=== PATIENT | female | born 1990 ===

== ENCOUNTER 2023-02-12 20:00 | Outpatient (CLI) | payer MEDICAID, SELFPAY | END 2023-02-12 20:01 | disposition home or self-care (01) | LOC: SLEEP 22:29 | PROVIDERS: Family Provider Family Medicine; Visit Provider Family Medicine | DX: G47.10 Hypersomnia, unspecified (principal); R06.83 Snoring; G47.33 Obstructive sleep apnea (adult) (pediatric) | CPT/HCPCS: 95810 ==

== ENCOUNTER 2023-06-24 20:00 | Outpatient (CLI) | payer MEDICAID, SELFPAY | END 2023-06-24 20:01 | disposition home or self-care (01) | LOC: SLEEP 06-25 06:29 | PROVIDERS: Family Provider Family Medicine; Visit Provider Family Medicine | DX: G47.33 Obstructive sleep apnea (adult) (pediatric) (principal) | CPT/HCPCS: 95811 ==

== ENCOUNTER 2024-10-08 20:59 | Outpatient (CLI) | payer MEDICAID, SELFPAY ==
[2024-10-08] VITALS (20 sets, daily range): BP systolic 110–139; BP diastolic 67–90; PULSE 99–109; RESP 17; TEMP 36.7–37.3; O2SAT 97–100; BMI 42.0
[2024-10-08 21:51] LABS: Bilirubin Urine Negative (Negative); Blood Urine Negative (Negative); Glucose Urine UA Negative (Normal); Ketones Urine Trace (Negative); Leukocyte Esterase Urine Negative (Negative); Nitrate Urine Negative (Negative); Protein Urine 1+ (Negative); Specific Gravity, Urine 1.028 (1.005-1.030); Urine Appearance Clear (CLEAR); Urine Color Yellow (Yellow)
[2024-10-08 21:53] LABS: Bacteria Urine Trace /hpf; Hyaline Casts Urine 0.81 /lpf; RBC Urine 0-2 /hpf (0-2); WBC Urine 0-5 /hpf (0-5)
== END 2024-10-08 22:55 | disposition home or self-care (01) ==
LOC: OPOB 21:00 → OBGYN 21:01
PROVIDERS: Family Provider Family Medicine; Visit Provider Family Medicine
DX: O26.899 Other specified pregnancy related conditions, unspecified trimester (principal); Z3A.00 Weeks of gestation of pregnancy not specified; R10.9 Unspecified abdominal pain
CPT/HCPCS: 59025; 81001; 99211

== ENCOUNTER 2024-10-16 11:38 | Inpatient (IN) | payer MEDICAID, SELFPAY ==
[2024-10-16] VITALS (38 sets, daily range): BP systolic 120–167; BP diastolic 60–101; PULSE 39–86; RESP 16–17; TEMP 36.2–37.3; O2SAT 98; BMI 42.4
[2024-10-16 12:18] LABS: Amphetamines Screen Urine Negative (Negative); Barbiturates Screen Urine Negative (Negative); Benzodiazepines Screen Urine Negative (Negative); Cocaine Screen Urine Negative (Negative); Opiate Screen Urine Negative (Negative); PCP Screen Urine Negative (Negative); THC Screen Urine Negative (Negative)
[2024-10-16 12:22] LABS: Basophils % 0.2 %; Eosinophils # 0.1 10^3/uL (0.0-0.8); Eosinophils % 0.4 %; Hematocrit 34.5 % (36-47); Lymphocytes # 1.8 10^3/uL (0.8-4.8); Mean Corpuscular HGB Conc 33.9 g/dL (30-55); Mean Corpuscular Hemoglobin 29.3 pg (27-33); Mean Corpuscular Volume 86.3 fl (85-98); Mean Platelet Volume 11.3 fL (7.4-10.4); Monocytes # 0.8 10^3/uL (0.2-0.9); Monocytes % 6.1 %; Neutrophils # 9.92 10^3/uL (1.8-7.7); Nucleated Red Blood Cells % 0.2 %; Platelet Count 194 10^3/cmm (157-399); White Blood Count 12.86 10^3/uL (3.29-11.43)
[2024-10-16] MEDS: lactated ringers 1,000 ML 999 ML IV (12:30)
--- NOTE | 2024-10-16 13:00 | P.ANESASSM_ITS ---
Pre-Anesthetic Assessment Height/Weight: Height 1.57 m Weight 105.233 kg Temp Pulse Resp BP Pulse Ox O2 Del Method 98.3 F 71 16 153/87 97 Room Air 10/17/24 02:16 10/17/24 04:20 10/17/24 04:20 10/17/24 04:30 10/17/24 04:20 10/17/24 04:20 Preop Diagnosis: female desiring sterilization Operation Date: 10/17/24 08:10 Proposed Procedures p Post Bilateral Tubal Ligation(Bilateral) - Keenan Caputo MD Familial anesthetic complications: None Was Beta Trino taken within 24 hours: N/A Was Clonidine taken within 24 hours: N/A Social No alcohol and No tobacco Exam alert, oriented x 3, clear to auscultation bilaterally and regular rate & rhythm Airway Dentition: full Anesthetic Plan ASA status: 2 Anesthesia: Regional (specify below) Risk of > 500 ml blood loss (7ml/kg in children): Yes, adequate IV access and fluids planned Medications/Allergies Home Medications Medication Instructions Recorded Confirmed Last Taken Type escitalopram oxalate 10 mg tablet 10 mg PO DAILY #30 tabs 10/17/24 Unknown Rx hydrocodone 5 mg-acetaminophen 325 1 tab PO Q6H PRN Moderate To 10/17/24 Unknown Rx mg tablet Severe Pain #10 tabs ibuprofen 800 mg tablet 800 mg PO TID #45 tabs 10/17/24 Unknown Rx vits no.130-ferrous fum 1 tab PO DAILY #90 tabs 10/17/24 Unknown Rx 27 mg iron-folic acid 800 mcg tablet ( Vitamin) Allergies Allergy/AdvReac Type Severity Reaction Status Date / Time sulfamethoxazole Allergy ALGY-Rash Verified 10/08/24 22:45 [From Bactrim] trimethoprim [From Bactrim] Allergy ALGY-Rash Verified 10/08/24 22:45 Current Medications Generic Name Dose Route Start Last Admin Trade Name Freq PRN Reason Stop Dose Admin Benzocaine 1 spray 10/16/24 18:35 10/16/24 20:55 Benzocaine-Menthol 78 Gm Canister TOPICAL 1 spray PRN PRN Administration PAIN Ibuprofen 800 mg 10/16/24 21:00 10/16/24 20:55 Ibuprofen 800 Mg Tablet PO 800 mg TID CORY Administration Lanolin 1 applic 10/16/24 18:35 10/16/24 20:55 Lanolin Oint 7 Gm TOPICAL 1 applic PRN PRN Administration DRYNESS PFSH Anesthesia Social History (Updated 10/16/24 @ 18:22 by Keenan Caputo MD) Substance/Drug Use: former Former substance use details: Marijuana Female Reproductive History : 3 Data Anesthesia 10/17/24 06:30 Short CBC 10/16/24 10/17/24 Range/Units 12:04 06:30 WBC 12.86 H 16.14 H (3.29-11.43) 10^3/uL Hgb 11.70 10.20 L (11.27-16.99) g/dL Hct 34.5 L 30.2 L (36-47) % MCV 86.3 86.5 (85-98) fl Plt Count 194 149 L (157-399) 10^3/cmm Neut % (Auto) 77.0 78.5 % Neut # (Auto) 9.92 H 12.68 H (1.8-7.7) 10^3/uL Blood Bank 10/16/24 12:04 Blood Type A Positive Rho(D) Type Rh positive Antibody Screen Negative Cardiac Studies: 2 No Data to Display
[2024-10-16] MEDS: ROPivacaine syringe 100 MG/50 ML SYRINGE 10 MG EPIDURAL ×2 (13:15→17:18)
--- NOTE | 2024-10-16 13:30 | ANES.PROC ---
Anesthesia Procedures Procedure/Date: 10/17/24 Epidural: Time Out Performed: Yes Consents Signed: Procedure Consent Consent: requested by attending/covering physician, from patient, from other, risks and benefits reviewed and patient agrees to proceed Lumbar Level: L3-L4 Epidural position: sitting Epidural procedure: sterile prep of area, 1% lidocaine to numb the area, 18 g needle, negative for paresthesia passed, neg for paresthesia, test dose given, 1.5% xylocaine 1:200k epi (5 cc), 0.2% Ropivacaine bolus ml (5 ml), placed PCEA, no systemic response, sterile dressing applied, L.U.D. no apparent complications and 0.2% Ropiavacaine @ mls/hr (10)
[2024-10-16] MEDS: dextrose 5%-sod chloride 0.45% 1,000 ML 125 ML IV (13:32)
--- NOTE | 2024-10-16 17:46 | PM.OPHPUD ---
Labor & Delivery H&P Update Date of Procedure: October 16, 2024 Date H&P Performed: 10/15/24 Changes to previous documentation: The patient was dilated to 4 cm with contractions Admission Diagnosis: 33-year-old 3 para 2-0-0-2 at 40 weeks and 2 days presenting in active labor Planned procedure: Vaginal delivery Other information: The patient is an otherwise healthy 33-year-old female who presented to the hospital day in active labor. She began having contractions shortly before arrival to hospital. She had no rupture of membranes. She had no other concerns. Her had been relatively unremarkable. Her blood type is a positive. Her antibody screen is negative. She was rubella immune. She passed her 3-hour glucose screen. She was GBS negative. The remainder of her infectious disease profile was within normal limits. She was THC positive. Related Problem List Diagnoses (1) 40 weeks gestation of : A&P Assessment and plan (1) 40 weeks gestation of : I anticipate routine labor and delivery. Status: Acute
[2024-10-16] MEDS: oxytocin 30 UNIT/500 ML BAG 600 UNIT IV (18:00)
--- NOTE | 2024-10-16 18:19 | P.HP_ITS ---
Providers/Chief Complaint 2 Admitting Physician: Keenan Caputo Chief Complaint: ctx History of Present Illness Travon Hartmann is a 33 year old female who presented to the hospital in active labor. Her labor and vaginal delivery were relatively unremarkable. After her delivery she once again expressed her desire to have a bilateral tubal ligation. We once again discussed the risks including the risks of bleeding, infection, and damage to intra-abdominal organs. We also discussed the wanted to her chance of becoming again. She and her partner had no further questions and wished to proceed. Earlier in her she also expressed a desire to have her tubes tied. At that time we also discussed the risks and alternatives. She also signed the requisite form due to her insurance. Review of Systems 2 General: Reports: 10 or more systems reviewed and unremarkable except in HPI and below Const: Reports: fatigue; Denies: fever(s) Eyes: Denies: change in vision Card: Denies: chest pain Musc: Reports: back pain Frankie/Lymph: Denies: easy bruising Medications/Allergies Home Medications Medication Instructions Recorded Confirmed Last Taken Type citalopram 20 mg tablet 20 mg PO DAILY 10/08/24 10/16/24 10/08/24 History Allergies Allergy/AdvReac Type Severity Reaction Status Date / Time sulfamethoxazole Allergy ALGY-Rash Verified 10/08/24 22:45 [From Bactrim] trimethoprim [From Bactrim] Allergy ALGY-Rash Verified 10/08/24 22:45 PFSH 2 PFSH: Social History (Updated 10/16/24 @ 18:22 by Keenan Caputo MD) Substance/Drug Use: former Former substance use details: Marijuana Female Reproductive History: : 3 Vital Signs Vitals Signs: Last Vital Signs Temp 97.2 F L 10/16/24 13:37 Pulse 46 L 10/16/24 17:57 Resp 16 10/16/24 11:58 BP 148/76 10/16/24 17:57 O2 Del Method Room Air 10/16/24 12:01 Weight: Weight last 48 hrs Weight 232 lb Physical Exam 2 Narrative: EXAM NARRATIVE: Bleeding was within normal limits post delivery. No significant tears noted in her vagina and perineum Const: COMMON NORMALS: patient oriented x3 and alert HENMT: COMMON NORMALS: moist oral mucous membranes HEAD & SCALP: normal to inspection Chest: COMMONS NORMALS: normal inspection of the chest Resp: COMMON NORMALS: clear to auscultation bilaterally AUSCULTATION: clear to auscultation bilaterally Cardio: COMMON NORMALS: regular rate and regular rhythm RATE: regular rate RHYTHM: regular rhythm GI: INSPECTION: Yes normal to inspection Extremity: COMMON NORMALS: normal to inspection GENERAL: Yes edema (Trace) Neuro: COMMON NORMALS: patient oriented x3, moves all extremities and no sensory deficits noted SENSORIUM/ORIENTATION: Yes alert Psych: COMMON NORMALS: mental status grossly normal Skin: COMMON NORMALS: no rashes or lesions noted GENERAL SKIN EXAM: no rashes or lesions noted Data 10/16/24 12:04 A&P Assessment and plan (1) Sterilization consult: We will be contacting supervisor stripping and anesthesia to determine a time tomorrow morning when we can perform her tube ligation. She will be n.p.o. for 8 hours prior to the procedure. Coding Level of Care Code Acute Code for [facility] Fwd Diagnoses Sterilization consult Z30.09
--- NOTE | 2024-10-16 18:23 | P.PCNOB_ITS ---
Delivery Note: Date of delivery: October 16, 2024 Pre-delivery diagnoses: 1. 33-year-old 3 para 2-0-0-2 a t 40 weeks estimated gestational age presenting in active labor Post-delivery diagnoses: Status post spontaneous vaginal delivery Procedure: Spontaneous vaginal delivery Delivering Physician: Keenan Caputo Estimated blood loss (mL): 50 Pre-Delivery Course: The patient presented to the hospital in active labor. She was noted to be 4 cm dilated. An epidural was placed. Spontaneous rupture membranes occurred. Thick meconium was noted. She then gradually progressed to complete without dif ficulty. Delivery: DELIVERY: The patient progressed to complete without difficulty. She delivered a female with a weight of 9 pounds 14 ounces with Apgars of 7, 9. The baby was delivered from the ROP position. I was unable to deliver the anterior shoulder, so shifted to delivering the posterior shoulder. After several pushes, the posterior shoulder delivered without difficulty. The baby was then completely delivered and placed on the mother's abdomen. The cord was then clamped and cut. There was no nuchal cord. Thick meconium was noted. The placenta and 3 vessel cord were delivered intact shortly thereafter. The perineum and vaginal vault were carefully examined. No lacerations were noted. Both the mother and the baby were in stable condition. Post-Delivery Status: Good A&P Assessment and plan (1) Spontaneous vaginal delivery: I anticipate routine care. The patient also mentioned that she does still wish to have her tubes tied. We will try to get this scheduled tomorrow morning. Coding Level of Care Code Acute Code for [facility] Fwd Diagnoses Spontaneous vaginal delivery O80
[2024-10-16] MEDS: ibuprofen 800 mg tablet PO (20:55)
[2024-10-16] MEDS: benzocaine-menthol 78 gm Canister 1 SPRAY TOPICAL (20:55)
[2024-10-16] MEDS: lanolin oint 7 gm 1 APPLIC TOPICAL (20:55)
[2024-10-17] VITALS (19 sets, daily range): BP systolic 129–166; BP diastolic 72–99; PULSE 65–83; RESP 14–17; TEMP 36.6–36.9; O2SAT 97–100
[2024-10-17 06:47] LABS: Basophils % 0.2 %; Eosinophils # 0.1 10^3/uL (0.0-0.8); Eosinophils % 0.3 %; Hematocrit 30.2 % (36-47); Lymphocytes # 2.1 10^3/uL (0.8-4.8); Lymphocytes % 13.3 %; Mean Corpuscular HGB Conc 33.8 g/dL (30-55); Mean Corpuscular Hemoglobin 29.2 pg (27-33); Mean Corpuscular Volume 86.5 fl (85-98); Monocytes # 1.1 10^3/uL (0.2-0.9); Monocytes % 6.8 %; Neutrophils # 12.68 10^3/uL (1.8-7.7); Neutrophils % 78.5 %; Nucleated Red Blood Cells % 0 %; Platelet Count 149 10^3/cmm (157-399); Red Blood Count 3.49 10^6/uL (3.85-5.65); Red Cell Distribution Width 13.1 % (12.1-15.1); White Blood Count 16.14 10^3/uL (3.29-11.43)
--- NOTE | 2024-10-17 07:37 | P.ANESASSM_ITS ---
Pre-Anesthetic Assessment Height/Weight: Height 1.57 m Weight 105.233 kg Temp Pulse Resp BP Pulse Ox O2 Del Method 98.3 F 71 16 153/87 97 Room Air 10/17/24 02:16 10/17/24 04:20 10/17/24 04:20 10/17/24 04:30 10/17/24 04:20 10/17/24 04:20 Preop Diagnosis: female desiring sterilization Operation Date: 10/17/24 08:10 Proposed Procedures p Post Bilateral Tubal Ligation(Bilateral) - Keenan Caputo MD Familial anesthetic complications: none Was Beta Trino taken within 24 hours: N/A Was Clonidine taken within 24 hours: N/A Social No alcohol and No tobacco Exam alert and oriented x 3 Airway Submandibular: within normal limits Cervical ROM: within normal limits Mallampati: Class II Dentition: full History/ROS No significant history except as noted Neuropsych Anxiety Anesthetic Plan ASA status: 2 Anesthesia: Anesthesia Evaluation, General and Regional (specify below) (spinal) Risk of > 500 ml blood loss (7ml/kg in children): No Medications/Allergies Home Medications Medication Instructions Recorded Confirmed Last Taken Type citalopram 20 mg tablet 20 mg PO DAILY 10/08/24 10/16/24 10/08/24 History Allergies Allergy/AdvReac Type Severity Reaction Status Date / Time sulfamethoxazole Allergy ALGY-Rash Verified 10/08/24 22:45 [From Bactrim] trimethoprim [From Bactrim] Allergy ALGY-Rash Verified 10/08/24 22:45 Current Medications Generic Name Dose Route Start Last Admin Trade Name Freq PRN Reason Stop Dose Admin Benzocaine 1 spray 10/16/24 18:35 10/16/24 20:55 Benzocaine-Menthol 78 Gm Canister TOPICAL 1 spray PRN PRN Administration PAIN Ibuprofen 800 mg 10/16/24 21:00 10/16/24 20:55 Ibuprofen 800 Mg Tablet PO 800 mg TID CORY Administration Lanolin 1 applic 10/16/24 18:35 10/16/24 20:55 Lanolin Oint 7 Gm TOPICAL 1 applic PRN PRN Administration DRYNESS PFSH Anesthesia Social History (Updated 10/16/24 @ 18:22 by Keenan Caputo MD) Substance/Drug Use: former Former substance use details: Marijuana Female Reproductive History : 3 Data Anesthesia 10/17/24 06:30 Short CBC 10/16/24 10/17/24 Range/Units 12:04 06:30 WBC 12.86 H 16.14 H (3.29-11.43) 10^3/uL Hgb 11.70 10.20 L (11.27-16.99) g/dL Hct 34.5 L 30.2 L (36-47) % MCV 86.3 86.5 (85-98) fl Plt Count 194 149 L (157-399) 10^3/cmm Neut % (Auto) 77.0 78.5 % Neut # (Auto) 9.92 H 12.68 H (1.8-7.7) 10^3/uL Blood Bank 10/16/24 12:04 Blood Type A Positive Rho(D) Type Rh positive Antibody Screen Negative Cardiac Studies: 2 No Data to Display
[2024-10-17] MEDS: metoclopramide 5 mg/mL SDV 2 mL 10 MG IVP (07:40)
[2024-10-17] MEDS: famotidine 20 mg/2 mL INJ IVP (07:40)
[2024-10-17] MEDS: citric acid-sodium citrate 30 mL UDC PO (07:40)
[2024-10-17] MEDS: lactated ringers 1,000 ML 999 ML IV (07:43)
--- NOTE | 2024-10-17 08:01 | P.DS_ITS ---
Discharge Providers [employer] Date of Admission: 10/16/24 11:38 Date of Discharge: 10/17/24 Attending Provider at Admission: Josette Edge MD Attending Provider at Discharge: Josette Edge MD Diagnoses at Discharge Discharge Diagnosis (1) Spontaneous vaginal delivery: Status: Acute Reason for Visit Reason for Visit: ctx Information Peripartum Data: Infant Delivery Method: Vaginal Physical Exam Narrative: She is in no acute distress Lungs are clear auscultation bilaterally Her heart has a regular rate and rhythm Her fundus is below the umbilicus and firm Her dressing is clean, dry and intact Her extremities have trace edema Urinary Catheter Management: [place]: Cath Placed During This Visit: yes Urinary Catheter Date of Insertion: 10/16/24 Urinary Catheter Time of Insertion: 12:15 Discharge Data Studies Completed and Pending Laboratory Results WBC 16.14 10^3/uL (3.29-11.43) H 10/17/24 06:30 RBC 3.49 10^6/uL (3.85-5.65) L 10/17/24 06:30 Hgb 10.20 g/dL (11.27-16.99) L 10/17/24 06:30 Hct 30.2 % (36-47) L 10/17/24 06:30 MCV 86.5 fl (85-98) 10/17/24 06:30 MCH 29.2 pg (27-33) 10/17/24 06:30 MCHC 33.8 g/dL (30-55) 10/17/24 06:30 RDW 13.1 % (12.1-15.1) 10/17/24 06:30 Plt Count 149 10^3/cmm (157-399) L 10/17/24 06:30 MPV 12.0 fL (7.4-10.4) H 10/17/24 06:30 Neut % (Auto) 78.5 % 10/17/24 06:30 Lymph % (Auto) 13.3 % 10/17/24 06:30 Petroleum % (Auto) 6.8 % 10/17/24 06:30 Eos % (Auto) 0.3 % 10/17/24 06:30 Baso % (Auto) 0.2 % 10/17/24 06:30 Neut # (Auto) 12.68 10^3/uL (1.8-7.7) H 10/17/24 06:30 Lymph # (Auto) 2.1 10^3/uL (0.8-4.8) 10/17/24 06:30 Petroleum # (Auto) 1.1 10^3/uL (0.2-0.9) H 10/17/24 06:30 Eos # (Auto) 0.1 10^3/uL (0.0-0.8) 10/17/24 06:30 Baso # (Auto) 0.0 10^3/uL (0.0-0.1) 10/17/24 06:30 Nucleated RBC % (auto) 0 % 10/17/24 06:30 Nucleated RBCs # 0.0 /100WBC 10/17/24 06:30 Urine Opiates Screen Negative ng/mL (Negative) 10/16/24 12:00 Ur Barbiturates Screen Negative ng/mL (Negative) 10/16/24 12:00 Ur Phencyclidine Scrn Negative ng/mL (Negative) 10/16/24 12:00 Ur Amphetamines Screen Negative ng/mL (Negative) 10/16/24 12:00 U Benzodiazepines Scrn Negative ng/mL (Negative) 10/16/24 12:00 Urine Cocaine Screen Negative ng/mL (Negative) 10/16/24 12:00 U Marijuana (THC) Screen Negative ng/mL (Negative) 10/16/24 12:00 Blood Type A Positive 10/16/24 12:04 Rho(D) Type Rh positive 10/16/24 12:04 Antibody Screen Negative 10/16/24 12:04 Vitals Last Vital Signs Temp 98.3 F 10/17/24 02:16 Pulse 71 10/17/24 04:20 Resp 16 10/17/24 04:20 BP 153/87 10/17/24 04:30 Pulse Ox 97 10/17/24 04:20 O2 Del Method Room Air 10/17/24 04:20 Results Labs OB ([facility]): Obstetrics US 07/06/24 Blood Type A Positive 10/16/24 Antibody Screen Negative 10/16/24 Hct 30.2 % (36-47) L 10/17/24 Hgb 10.20 g/dL (11.27-16.99) L 10/17/24 Rho(D) Type Rh positive 10/16/24 Plt Count 149 10^3/cmm (157-399) L 10/17/24 Urine Opiates Screen Negative ng/mL (Negative) 10/16/24 Ur Barbiturates Screen Negative ng/mL (Negative) 10/16/24 Ur Phencyclidine Scrn Negative ng/mL (Negative) 10/16/24 Ur Amphetamines Screen Negative ng/mL (Negative) 10/16/24 U Benzodiazepines Scrn Negative ng/mL (Negative) 10/16/24 Urine Cocaine Screen Negative ng/mL (Negative) 10/16/24 U Marijuana (THC) Screen Negative ng/mL (Negative) 10/16/24 Discharge Plan Discharge Patient Disposition: Home Condition: Stable Prescriptions: New ibuprofen 800 mg Tablet 800 mg PO TID Qty: 45 0RF hydrocodone-acetaminophen 5-325 mg Tablet 1 tab PO Q6H PRN (Reason: Moderate To Severe Pain) Qty: 10 0RF escitalopram oxalate 10 mg Tablet 10 mg PO DAILY Qty: 30 0RF Vitamin 27 mg iron- 800 mcg Tablet 1 tab PO DAILY Qty: 90 2RF Discontinued citalopram 20 mg Tablet 20 mg PO DAILY Discharge Orders: Discharge Order (Routine); Ordered 10/17/24 Ordered By: Keenan Caputo Referrals: Keenan Caputo MD [Family Provider] - 4-7 days (Please correlate appointment with baby's appointment.) Discharge Diet: Usual diet Discharge Activity: Limit activity as instructed Patient Instructions: Depression (DC), Opioid Safety (DC), Preeclampsia and Eclampsia After Delivery (GEN), Hemorrhage (DC), OB Discharge Report, OB Food/Drug Interaction Guide, Opioid Safety, OB Home Care, OB Vaginal Deliveries, Abnormal Bleeding Discharge Attestations [employer] Time Spent in Discharge Care*: less than 30 min Coding Level of Care Code Acute Code for Chg Fwd Diagnoses Spontaneous vaginal delivery O80
--- NOTE | 2024-10-17 08:50 | PM.OP ---
Operative Report Date of procedure: October 17, 2024 Pre-op diagnosis: 33-year-old female desiring sterilization Post-op diagnosis: Status post mini laparotomy bilateral tubal ligation Procedure done: mini laparotomy bilateral tubal ligation using modified Jovita technique Specimens removed/disposition: Bilateral fallopian tube segments with the right segment being tagged Pathology: Bilateral fallopian tube segments with the right segment being tagged Surgeon: Keenan Caputo MD Estimated blood loss (mL): 10 Complications: None Procedure: The patient was brought back to the operating room where anesthesia was found to be adequate. 10 mL of 0.5% bupivacaine was then used to pre-anesthetize the area just inferior to the umbilicus. A #15 blade was then used to make a 3 cm transverse incision just inferior to the umbilicus. I then dissected down to the underlying subcutaneous tissue until arriving at the fascia. The fascia was then nicked with the scalpel. The fascial incision was extended manually. I identified the fundus of the uterus and followed it to the left fallopian tube. The fallopian tube was then followed to the fimbria. The tube was then ligated, cut, and cauterized in a modified Jovita fashion using 0 chromic. The right fallopian tube was then identified and followed through to the fimbria. It was ligated, cut, and cauterized in similar fashion. The right fallopian tube was tagged. Both fallopian tubes had excellent hemostasis. The fascia was reapproximated using 0 Vicryl in running stitch. The subcutaneous tissue was carefully examined and no further bleeding was noted. The skin was then reapproximated using 4-0 Vicryl in a running subcuticular stitch. A sterile dressing was placed. All counts were correct x2. The patient was moved to the recovery room in stable condition.
[2024-10-17] MEDS: escitalopram 10 mg Tablet PO (10:00)
[2024-10-17] MEDS: ibuprofen 800 mg tablet PO (10:00)
[2024-10-17] MEDS: PRENATAL VIT NO.130/IRON/FOLIC 1 EACH TABLET PO (10:11)
[2024-10-17] MEDS: docusate sodium 100 mg Capsule PO (10:11)
--- NOTE | 2024-10-17 12:15 | PC.NURSE ---
10/17/24 at approximately 1145, this nurse attempted to help patient out of bed to walk. Patient states that her legs have feeling back and she would like to walk. Patient helped to sitting position on side of bed. Patient attempted to stand with aid of nurse, but states she feels unstable and would like to get back in bed. Patient helped back into bed. This nurse states for patient to stay in bed and nurse will aid patient in trying to stand again in approximately one hour.
[2024-10-17] MEDS: HYDROcodone-acetaminophen 5-325 mg Tablet PO ×2 (13:20→18:34)
--- NOTE | 2024-10-17 14:00 | ANE.PACU2 ---
Inpatient post-anesthesia follow up: Airway intact: Yes Vital signs: Temperature 98.4 F Pulse Rate 74 Respiratory Rate 16 Blood Pressure 138/72 Pulse Oximetry 97 Oxygen Delivery Me thod Room Air Oxygen Flow Rate Fraction of Inspir ed Oxygen Hydration adequate: Yes Nausea and vomiting: No Pain level: 1 Mental status: Baseline Additional Comments: Patient is post epidural and post PPBTL Epidural Start/End: Epidural Start Date: 10/16/24 Epidural Start Time: 13:10 Epidural End Date: 10/16/24 Epidural End Time: 20:51
--- NOTE | 2024-10-17 14:28 | PC.NURSE ---
Addendum entered by Huong Philip RN 10/17/24 14:29: 10/17/24 at approximately 1330, this nurse assisted patient out of bed and to the bathroom. Patient ambulated well. Patient refused walking in the escudero at this time, stating she would like to wait until her visitors leave. Original Note: This nurse assisted patient out of bed and to the bathroom. Patient ambulated well. Patient refused walking in the escudero at this time, stating she would like to wait until her visitors leave.
[2024-10-17] MEDS: acetaminophen 325 mg Tablet 650 MG PO (16:20)
== END 2024-10-17 19:51 | disposition home or self-care (01) | DRG 798 ==
LOC: OPOB 11:39 → OBGYN 11:39
PROVIDERS: Admitting Provider Family Medicine; Family Provider Family Medicine; Visit Provider Family Medicine
PROC: 0UB70ZZ Excision of Bilateral Fallopian Tubes, Open Approach (ICD-10-PCS; CPT 58605; principal; 2024-10-17 08:00)
DX: O77.0 Labor and delivery complicated by meconium in amniotic fluid (principal); Z37.0 Single live birth; Z3A.40 40 weeks gestation of pregnancy; Z30.2 Encounter for sterilization; O32.8XX0 Maternal care for other malpresentation of fetus, not applicable or unspecified
CPT/HCPCS: 36415; 51702; 59025; 59409; 80306; 85025; 86850; 86900; 88302; 96374; 99211; J2371; J2590; J2765; J2795; J3490; J7120; J7799